=== PATIENT | male | born 1960 | race Caucasian/White ===

== ENCOUNTER 2021-11-03 02:05 | Inpatient (IN) | payer MEDICARE, OTHER ==
[~2021-11-03] VITALS: Ht 172.7 cm; Wt 72.6 kg
[2021-11-03] MEDS ORDERED: ACET-2154 PO (02:39)
[2021-11-03] MEDS ORDERED: GUAI237L83 PO (02:39)
[2021-11-03] MEDS ORDERED: NICO-671 TP (02:39)
[2021-11-03] MEDS ORDERED: NICO2GUM38 BC (02:39)
[2021-11-03] MEDS ORDERED: MAG30ORA PO (02:39)
[2021-11-03] MEDS ORDERED: IBUP-1953 PO (02:39)
[2021-11-03] MEDS ORDERED: LORA-258 PO (02:39)
[2021-11-03] MEDS ORDERED: MAGN400O6 PO (02:39)
[2021-11-03] MEDS ORDERED: BISM262O28 PO (02:39)
[2021-11-03] MEDS ORDERED: DIPH50CA37 PO (02:39)
[2021-11-03] MEDS ORDERED: HYDR50CA PO (02:39)
--- NOTE | 2021-11-03 02:43 | NUR ---
Patient is a/ox4, NAD noted, patient is able to walk with steady gait
--- NOTE | 2021-11-03 03:00 | NUR ---
report given to Armando SALEH
--- NOTE | 2021-11-03 04:15 | NUR ---
Admitted patient to MHU from ER via wheelchair accompanied by Er nurse under on 5150 hold. Dx of Suicidal Ideation.Upon face to face evaluation.Patient appeared dishevelled.Alert x4. Denies SI /HI at this time.Calm and cooperative. Ambulates to bathroom .All belongings list done.Patient rights handbook and advisement given.Units rules and expectation explained.Safety measure in place. Will continue to monitor.
--- NOTE | 2021-11-03 04:20 | NUR ---
Pt. admitted to MHU , under care of Dr. Westfall Belongs List completed Armando RN aware of patient's arrival
[2021-11-03] MEDS ORDERED: MAG HYDROX/AL HYDROX/SIMETH 30 ML LIQUID UDC PO PRN (05:15)
[2021-11-03] MEDS ORDERED: MAGNESIUM HYDROXIDE 30 ML LIQUID UDC PO PRN (05:15)
[2021-11-03 09:16] VITALS: BP 100/62
[2021-11-03 16:01] VITALS: BP 111/83
--- NOTE | 2021-11-03 16:33 | NUR ---
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 Stayed in the activity room watching TV .Per patient his goal was to "shape up, find place to live" . Claimed he used [employer]. 3 days ago, which he got from his daughter. Originally from [place] per patient, moved to [place] , now he is homeless.Denies any plan to hurt himself, no S.I. no H.I. gets anxious , claimed he's been sleeping a lot .
[2021-11-03] MEDS: LORAZEPAM 1 MG TABLET PO PRN (18:06)
[2021-11-03] MEDS: ARIPIPRAZOLE 5 MG TABLET PO SCH (18:11)
[2021-11-03 20:07] VITALS: BP 110/77
--- NOTE | 2021-11-04 03:45 | NUR ---
Patient alert oriented, no complain of pain, calm and cooperative with care and medications, stayed in bed, brp, cont to monitor.
[2021-11-04 07:48] VITALS: BP 122/72
[2021-11-04] MEDS: NICOTINE 21 MG/24HR PATCH TD SCH (08:39)
[2021-11-04] MEDS: ARIPIPRAZOLE 5 MG TABLET PO SCH ×3 (08:39→20:24)
--- NOTE | 2021-11-04 10:39 | NUR ---
Patient's hold is up today at 16:15. Dr. Potter was reached at 09:40 and is aware of it.
[2021-11-04] MEDS: LORAZEPAM 1 MG TABLET PO PRN ×2 (10:46→16:12)
--- NOTE | 2021-11-04 10:47 | NUR ---
Gps/Mental Hygiene Consultant- Complained of feeling anxious, jittery stated" my head is not right i am feeling off , light headed, b instructed to go to bed, b/p 114/76- HR 87 02 sat 97% resp. 18. Ativan 1 mg po given . will continue to monitor. Patient spoked to his father. Patient also claimed he uses mets and he gets it from his daughter, he thinks he is detoxing , last used mets. few days ago .Will continue to monitor .
[2021-11-04 11:33] LABS: BILIRUBIN,TOTAL 0.3 mg/dL (0.2-1.0); CREATININE 0.8 mg/dL (0.6-1.3); TOTAL PROTEIN, SERUM 7.2 g/dL (6.4-8.2)
[2021-11-04 15:56] VITALS: BP 111/81
[2021-11-04 19:45] VITALS: BP 122/80
[2021-11-04] MEDS: ZOLPIDEM 5 MG TABLET PO PRN (20:24)
[2021-11-05 08:02] VITALS: BP 139/83
[2021-11-05] MEDS: ARIPIPRAZOLE 5 MG TABLET PO SCH ×3 (08:34→17:14)
[2021-11-05] MEDS: NICOTINE 21 MG/24HR PATCH TD SCH (08:34)
[2021-11-05] MEDS: ACETAMINOPHEN 325 MG TABLET PO PRN (10:21)
[2021-11-05] MEDS: LORAZEPAM 1 MG TABLET PO PRN ×2 (10:21→18:14)
--- NOTE | 2021-11-05 14:36 | NUR ---
Received patient sleeping in her room. A/O X 3 to person, place. Pt. is anxious, talkative, restless. Pt. states "I can't relax. I've done too many drugs. I need at least a coffee with caffeine. Ativan 1 mg is given at 10:21 for anxiety, effective. Tylenol 650 mg is given at 10:21 for headache, effective. Patient is compliant with medications. Pt. is encourage to verbalize concerns. Fall and safety precautions implemented.
--- NOTE | 2021-11-05 15:01 | NUR ---
[facility] Initial Discharge Plan: Pt does not have a current address. Pt is agreeable to discharge to a retirement facility. Pt is in contact with is son, Manish ([phone]) who resides in [place]. Pt also has a daughter, Cece ([phone]). SW will continue to be in contact with pt, family and MD to ensure a safe and proper discharge plan.
--- NOTE | 2021-11-05 15:10 | NUR ---
Firearms Report: Correctional Program Officer completed and submitted a [employer] firearms report for 5150 a danger to self. A copy of report has been placed in patient chart.
[2021-11-05 16:02] VITALS: BP 112/62
--- NOTE | 2021-11-05 18:34 | NUR ---
Ativan 1 mg is given at 18:15 for anxiety, will be monitored for effectiveness.
[2021-11-05 19:38] VITALS: BP 116/77
[2021-11-05] MEDS: ZOLPIDEM 5 MG TABLET PO PRN (21:27)
[2021-11-06 07:42] VITALS: BP 120/81
[2021-11-06] MEDS: NICOTINE 21 MG/24HR PATCH TD SCH (08:41)
[2021-11-06] MEDS: ARIPIPRAZOLE 5 MG TABLET PO SCH ×3 (08:41→17:07)
[2021-11-06] MEDS: LORAZEPAM 1 MG TABLET PO PRN ×2 (10:04→18:04)
--- NOTE | 2021-11-06 10:06 | NUR ---
GPS: PT REQUESTED FOR AN ATIVAN 1MG, GIVEN AND TOLERATED WELL. PT FEELS ANXIOUS, PER PT, "I'VE BEEN STAYING ALL DAY IN THE ROOM". ENCOURAGED TO GET TO THE [facility] WHERE THERE IS GROUP ACTIVITY. PT WENT AND PARTICIPATED. NO AGITATION NOTED AT THIS TIME.
[2021-11-06] MEDS: ACETAMINOPHEN 325 MG TABLET PO PRN (11:40)
[2021-11-06 16:09] VITALS: BP 104/78
--- NOTE | 2021-11-06 17:56 | NUR ---
GPS: PT SEEN WALKING ALONG THE HALLWAY, MAKE SOME CONVERSATION WITH OTHER PT. PT ABLE TO MAKE NEEDS KNOWN. COMPLIANT WITH CARE AND MEDS. PT INDEPENDENTLY HAD A SHOWER TODAY. ON MONITOR FOR ANY SUICIDE PRECAUTION. DENIES SUICIDAL/HOMICIDAL IDEATION AT THIS TIME.
--- NOTE | 2021-11-06 18:06 | NUR ---
GPS: PT FEELS ANXIOUS COMPLAINING OF THOUGHTS OF THE PAST RUNNING IN HIS MIND ABOUT HIS DAUGHTER AND HIM, STAYING ON A FILTHY DIRTY MOTOR HOME AND OTHER THINGS. REQUESTED FOR AN ATIVAN FOR ANXIETY. PT DENIES SI/HI. WILL MONITOR FOR SAFETY.
[2021-11-06 19:47] VITALS: BP 106/73
--- NOTE | 2021-11-07 06:28 | NUR ---
GPS: Pt.slept well last night. Remains anxious,sad but denies wanting to harm self. Re-assured prn. Safety emphasized. Will continue to monitor.
[2021-11-07 07:30] VITALS: BP 112/83
[2021-11-07] MEDS: ARIPIPRAZOLE 5 MG TABLET PO SCH ×3 (08:42→16:48)
[2021-11-07] MEDS: NICOTINE 21 MG/24HR PATCH TD SCH (08:42)
[2021-11-07] MEDS: LORAZEPAM 1 MG TABLET PO PRN ×2 (09:20→16:48)
--- NOTE | 2021-11-07 11:44 | NUR ---
Court hearing was scheduled this morning to continuing treatment under 5250 hold, and it was granted by Armhole Baster Jump[employer] Lisa Kemp as Gravely Disabled.
[2021-11-07] MEDS: ACETAMINOPHEN 325 MG TABLET PO PRN (14:38)
[2021-11-07 16:00] VITALS: BP 108/82
--- NOTE | 2021-11-07 18:31 | NUR ---
GPS: PT ALERT/ORIENTED X3-4, COOPERATIVE WITH CARE AND COMPLIANT WITH MEDS. NO AGITATION NOTED, DENIES SUICIDAL / HOMICIDAL IDEATION. PT LIKES HAVING CONVERSATION AND MEETING NEW PEER/PT. PT RECEIVED SEVERAL PHONE CALLS TODAY, ONE FROM HER DAUGHTER. PT IS CALM WHEN APPROACH.
[2021-11-07 19:57] VITALS: BP 117/81
[2021-11-07] MEDS: ZOLPIDEM 5 MG TABLET PO PRN (21:26)
--- NOTE | 2021-11-08 06:03 | NUR ---
Received patient at the start of the shift, intrusive and hyperverbal. The patient was easily redirectable and medication compliant. The patient made a verbal contract for safety with this marketing copywriter. Patient denied any and all SI and verbalized " I did not ever feel like killing myself, I just said that to get in someplace ". Safety Stratiges remain in place. Total sleep hours were 5.45. The patient has been pleasant but needy.
[2021-11-08 08:23] VITALS: BP 95/62
[2021-11-08] MEDS: NICOTINE 21 MG/24HR PATCH TD SCH (09:14)
[2021-11-08] MEDS: ARIPIPRAZOLE 5 MG TABLET PO SCH ×2 (09:14→13:00)
[2021-11-08] MEDS: LORAZEPAM 1 MG TABLET PO PRN ×2 (09:19→17:15)
--- NOTE | 2021-11-08 15:46 | NUR ---
Clinical SW Note: Pt alleged to this SW in individual therapy that he has been romantically involved with his 41 year old daughter and it was consensual. Pt stated he only met her a year ago. SW has not been in contact with pt's daughter. Pt had stated to this SW prior to this session to only speak with the pt.
[2021-11-08 16:00] VITALS: BP 110/74
--- NOTE | 2021-11-08 18:57 | NUR ---
GPS: PT LIKES STANDING BY/ WALKING AROUND THE HALLWAY AND HAVING CONVERSATION WITH OTHER PT AND STAFF. HYPERVERBAL, COMPLIANT WITH CARE AND MEDS. FIXATED WITH USING THE PHONE, WAITING FOR DAUGHTER'S CALL.
[2021-11-08 20:00] VITALS: BP 109/78
[2021-11-08] MEDS: ARIPIPRAZOLE 10 MG TABLET PO SCH (21:04)
[2021-11-08] MEDS: ZOLPIDEM 5 MG TABLET PO PRN (21:04)
[2021-11-09 07:53] VITALS: BP 122/75
[2021-11-09] MEDS: NICOTINE 21 MG/24HR PATCH TD SCH (09:01)
[2021-11-09] MEDS: ARIPIPRAZOLE 5 MG TABLET PO SCH ×2 (09:01→12:47)
[2021-11-09] MEDS: LORAZEPAM 1 MG TABLET PO PRN ×2 (10:18→18:17)
[2021-11-09] MEDS: ACETAMINOPHEN 325 MG TABLET PO PRN ×2 (10:18→18:17)
[2021-11-09 16:24] VITALS: BP 140/86
--- NOTE | 2021-11-09 17:23 | NUR ---
GPS: PT COMPLIANT WITH CARE AND MEDS. WITH EPISODE OF ANXIETY AND AGITATION WITH STAFF BUT APOLOGIZE AFTER. PT EASILY GETS IRRITATED ESPECIALLY IF NEEDS ARE NOT MEET IMMEDIATELY. GIVEN ATIVAN AND TYLENOL TODAY.
[2021-11-09 20:50] VITALS: BP 100/60
[2021-11-09] MEDS: ZOLPIDEM 5 MG TABLET PO PRN (21:34)
[2021-11-09] MEDS: ARIPIPRAZOLE 10 MG TABLET PO SCH (21:34)
[2021-11-10 07:48] VITALS: BP 113/71
[2021-11-10] MEDS: NICOTINE 21 MG/24HR PATCH TD SCH (08:24)
[2021-11-10] MEDS: ARIPIPRAZOLE 5 MG TABLET PO SCH ×2 (08:24→13:55)
[2021-11-10] MEDS: LORAZEPAM 1 MG TABLET PO PRN ×2 (08:41→17:13)
[2021-11-10 16:05] VITALS: BP 128/89
[2021-11-10] MEDS: ACETAMINOPHEN 325 MG TABLET PO PRN (17:13)
--- NOTE | 2021-11-10 17:55 | NUR ---
GPS: Nursing Notes: Destructive Behavior To Self: Patient is awake and responding to his name, gets anxious when redirected, argumentative at times, but following staff directions, anxious affect, participating in therapeutic groups, believes that he getting better, stated that the medications are working, unable to formulate a viable plan for self care, continue to monitor for safety, continue with treatment plan.
[2021-11-10] MEDS: ZOLPIDEM 5 MG TABLET PO PRN (21:14)
[2021-11-10] MEDS: ARIPIPRAZOLE 10 MG TABLET PO SCH (21:14)
[2021-11-11 07:30] VITALS: BP 148/88
[2021-11-11] MEDS: NICOTINE 21 MG/24HR PATCH TD SCH (08:30)
[2021-11-11] MEDS: ACETAMINOPHEN 325 MG TABLET PO PRN ×2 (08:30→16:55)
[2021-11-11] MEDS: ARIPIPRAZOLE 5 MG TABLET PO SCH ×2 (08:30→12:26)
[2021-11-11] MEDS: LORAZEPAM 1 MG TABLET PO PRN ×2 (08:30→16:55)
--- NOTE | 2021-11-11 14:48 | NUR ---
GPS: Nursing Notes: Destructive Behavior To Self: Patient is awake and responding to his name, argumentative with peer this AM, gets easily anxious when redirected, compliant with his medications, denies SI/HI, needs prompting to participate in therapeutic groups, A/OX4, poor impulse control at times, unable to formulate a viable plan for self care, continue to monitor for safety, continue with treatment plan.
[2021-11-11 15:07] VITALS: BP 132/88
[2021-11-11 20:14] VITALS: BP 157/73
[2021-11-11] MEDS: ZOLPIDEM 5 MG TABLET PO PRN (20:53)
[2021-11-11] MEDS: ARIPIPRAZOLE 10 MG TABLET PO SCH (20:53)
[2021-11-12 07:56] VITALS: BP 106/76
[2021-11-12] MEDS: ARIPIPRAZOLE 5 MG TABLET PO SCH ×3 (08:47→21:47)
[2021-11-12] MEDS: NICOTINE 21 MG/24HR PATCH TD SCH (08:47)
[2021-11-12] MEDS: LORAZEPAM 1 MG TABLET PO PRN (08:47)
[2021-11-12] MEDS: ACETAMINOPHEN 325 MG TABLET PO PRN ×2 (08:47→17:55)
[2021-11-12] MEDS: LORAZEPAM 0.5 MG TABLET PO PRN ×2 (11:56→17:55)
--- NOTE | 2021-11-12 13:12 | NUR ---
SNF Referrals: SW faxed pt's referrals to [facility] located at [address] [place] [address] ([phone]) and spoke with Mari Mathew at the facility.
--- NOTE | 2021-11-12 13:31 | NUR ---
GPS: Nursing Notes: Destructive Behavior To Self: Patient is awake and responding to his name, compliant with his medications, gets easily anxious when redirected, argumentative at times, denies SI/HI, following staff directions, but unable to formulate a viable plan for self care, continue to monitor for safety, continue with treatment plan.
[2021-11-12 15:56] VITALS: BP 132/89
[2021-11-12] MEDS: ZOLPIDEM 5 MG TABLET PO PRN (21:46)
[2021-11-12 22:01] VITALS: BP 118/68
--- NOTE | 2021-11-13 06:24 | NUR ---
Patient was anxious and argumentative with a peer at the start of the shift. The patient was paranoid and accused the other patient stating" What's so funny ? Why are you laughing at my daughter who is a drug addict and could ". This patient was easily distracted and walked away. The patient denies SI and wants to be discharged to his daughters place soon. Safety Stratiges are in place. Sleep hours are 6.45. No behavioral issues noted.
[2021-11-13 07:30] VITALS: BP 120/64
[2021-11-13] MEDS: LORAZEPAM 0.5 MG TABLET PO PRN ×2 (08:28→15:17)
[2021-11-13] MEDS: ACETAMINOPHEN 325 MG TABLET PO PRN ×2 (08:28→15:17)
[2021-11-13] MEDS: NICOTINE 21 MG/24HR PATCH TD SCH (08:28)
[2021-11-13] MEDS: ARIPIPRAZOLE 5 MG TABLET PO SCH ×4 (08:29→20:58)
--- NOTE | 2021-11-13 11:44 | NUR ---
GPS: Nursing Notes: Destructive Behavior To Self: Patient is awake and responding to his name, compliant with his medications, argumentative with staff, gets easily anxious when redirected, unable to formulate a viable plan for self care, continue to monitor for safety, continue with treatment plan.
--- NOTE | 2021-11-13 14:16 | NUR ---
SW Discharge Update: Mari ([phone]) from [facility] ([phone]) stated that pt cannot be accepted to their facility or to [facility] due to pt's hx of inappropriate behavior.
[2021-11-13 15:10] VITALS: BP 111/62
[2021-11-13 20:05] VITALS: BP 116/60
--- NOTE | 2021-11-13 20:30 | NUR ---
received patient in his room in bed sleeping but easily arousable. he is noted A/O x 3 able to verbalized his feelings. Patient noted labile. He gets easily irritable. he needs redirections. Patient denied SI/HI/VH/AH he is able to CFS. patient V/S stable. he is in no distress. Patient was given PO fluids and snacks. he is reassured for his safety. safety and fall precaution are in place. will continue to monitor.
[2021-11-13] MEDS: ZOLPIDEM 5 MG TABLET PO PRN (22:08)
[2021-11-14 07:30] VITALS: BP 131/89
[2021-11-14] MEDS: LORAZEPAM 0.5 MG TABLET PO PRN ×2 (08:36→15:16)
[2021-11-14] MEDS: NICOTINE 21 MG/24HR PATCH TD SCH ×2 (08:36→13:20)
[2021-11-14] MEDS: ARIPIPRAZOLE 5 MG TABLET PO SCH ×4 (08:36→20:27)
[2021-11-14] MEDS: ACETAMINOPHEN 325 MG TABLET PO PRN (10:45)
[2021-11-14 16:00] VITALS: BP 119/79
--- NOTE | 2021-11-14 18:42 | NUR ---
GPS: PT COMPLIANT WITH MEDS. PT HAD SHOWER TODAY. PT ABLE TO MAKE NEEDS KNOWN. NO AGITATION NOTED. DENIES SI/HI. PT A BIT NEEDY, ATTENDS GROUP THERAPY AND LIKES TO BE AROUND PEERS.
[2021-11-14 20:07] VITALS: BP 134/81
--- NOTE | 2021-11-14 20:30 | NUR ---
received patient in the hallway. he is noted A/O x 3 he is very pleasant and happy upon approached. He stated to this copy writer, "I am leaving this please Friday". Patient stated he is looking forward to be able to afford his own place but for now he is ok to go to a jail. Patient denied SI/HI/AH/VH he is able verbally to CFS. Patient is reassured for his safety. safety and fall precautions are in place. V/S are stable. patient in no distress. he was given PO fluids and snacks. will continue to monitor.
[2021-11-14] MEDS: ZOLPIDEM 5 MG TABLET PO PRN (21:41)
[2021-11-15 07:30] VITALS: BP 122/93
--- NOTE | 2021-11-15 09:00 | NUR ---
Alert, oriented x 4, feeling anxious.Ativan given as directed. Compliant with taking of medications. Ambulatory. self care
[2021-11-15] MEDS: NICOTINE 21 MG/24HR PATCH TD SCH (09:02)
[2021-11-15] MEDS: LORAZEPAM 0.5 MG TABLET PO PRN ×2 (09:02→14:45)
[2021-11-15] MEDS: ARIPIPRAZOLE 5 MG TABLET PO SCH ×3 (09:02→16:26)
[2021-11-15] MEDS: ACETAMINOPHEN 325 MG TABLET PO PRN (12:08)
--- NOTE | 2021-11-15 13:10 | NUR ---
Calm and compliant with care. Reports of headache, Tylenol po given
--- NOTE | 2021-11-15 15:00 | NUR ---
Reports anxiety. Ativan po given as ordered
[2021-11-15 17:01] VITALS: BP 118/76
--- NOTE | 2021-11-15 20:30 | NUR ---
RECEIVED PATIENT IN THE DAYROOM. HE IS NOTED CALM AND PLEASANT UPON APPROACHED. PATIENT IS AWARE OF HIS INCOMING DISCHARGED. UPON INTERVIEW HE DENIED SI/HI/VA/AH HE IS ABLE TO CFS. HE IS NOTED GOAL ORIENTED. HE IS REASSURED FOR HIS SAFETY. SAFETY AND FALL PRECAUTION ARE IN PLACE. HIS V/S ARE STABLE. PATIENT IN NO DISTRESS. HE WAS GIVEN PO FLUIDS AND SNACKS. WILL CONTINUE TO MONITOR,
[2021-11-15] MEDS ORDERED: ARIPIPRAZOLE 5 MG TABLET PO SCH (21:00)
[2021-11-15] MEDS ORDERED: ARIPIPRAZOLE 10 MG TABLET PO SCH (21:00)
[2021-11-15 21:01] VITALS: BP 137/88
[2021-11-16 07:30] VITALS: BP 129/78
[2021-11-16] MEDS: ARIPIPRAZOLE 5 MG TABLET PO SCH (08:33)
[2021-11-16] MEDS: NICOTINE 21 MG/24HR PATCH TD SCH (08:33)
[2021-11-16] MEDS: LORAZEPAM 0.5 MG TABLET PO PRN (08:35)
--- NOTE | 2021-11-16 10:59 | NUR ---
Pt is a/o x 3-4, cooperative with care calm. Plan is to discharge to [facility]. Report called and given to Jolly SALEH at facility at . Ambulance transportation set up with [facility] for 1100. All discharge education and materials provided for pt. Pt denies HI/SI, no AH/VH. No signs of acute distress. Pt is aware and agreeable with discharge.
== END 2021-11-16 11:30 | DRG 885 ==
LOC: ER 02:10 → GPS 03:59
PROVIDERS: ADMIT Psychiatry & Neurology Psychosomatic Medicine; ATTEND Nurse Practitioner Acute Care
DX: F25.0 Schizoaffective disorder, bipolar type (principal); B19.20 Unspecified viral hepatitis C without hepatic coma; E87.1 Hypo-osmolality and hyponatremia; R45.851 Suicidal ideations; F15.10 Other stimulant abuse, uncomplicated; F19.10 Other psychoactive substance abuse, uncomplicated; Z59.00 Homelessness unspecified; Z86.73 Personal history of transient ischemic attack (TIA), and cerebral infarction without residual deficits; Z90.49 Acquired absence of other specified parts of digestive tract; F17.200 Nicotine dependence, unspecified, uncomplicated
CPT/HCPCS: 36415; A4663